=== PATIENT | female | born 1965 | race Caucasian/White ===

== ENCOUNTER → 2020-12-19 | Outpatient (CLI) | payer MEDICARE ==
[~2020-12-19] MED LIST: DOCU-192 PO; ESCI10TA10 PO; OXYC15TA60 PO; OXYC20TA2 PO
== END | disposition home or self-care (01) ==
LOC: CFH 12:05
PROVIDERS: ATTEND Family Medicine
DX: Z12.2 Encounter for screening for malignant neoplasm of respiratory organs (principal); K44.9 Diaphragmatic hernia without obstruction or gangrene; J98.11 Atelectasis; Z87.891 Personal history of nicotine dependence
CPT/HCPCS: 71271